=== PATIENT | female | born 1985 | race Caucasian/White ===

== ENCOUNTER 2016-09-27 09:32 | Emergency (ER) | payer OTHER ==
--- NOTE | ~2016-09-27 | ER ---
PATIENT'S NAME: [facility] AGE: 30 Y [address] ROOM: [place] [address] LOCATION: ED ADMIT DATE: 09/27/2016 ER/Outpatient Report DISCHARGE DATE: 09/27/2016 FAMILY PHYSICIAN: PHYSICIAN, NO ATTENDING PHYSICIAN: Carlos Adams Time of Arrival: 0937. Time of evaluation: 936. CHIEF COMPLAINT: Facial swelling. HISTORY OF PRESENT ILLNESS: The patient is a 30-year-old female, who presents to the emergency department today with a chief complaint of facial swelling on the left side. She reports she has bad teeth. This reported couple of days prior. She was seen and evaluated in May by myself for similar symptoms. She reports she was never able to follow up with a dentist at that time. She denies any fevers or chills. No nausea or vomiting. No diarrhea or constipation. PAST MEDICAL HISTORY: Dental caries, Araiza's palsy. PAST SURGICAL HISTORY: x2. SOCIAL HISTORY: The patient denies any tobacco, alcohol, or illicit drug use. ALLERGIES: PENICILLIN, WHICH CAUSES MOUTH SWELLING. MEDICATIONS: None reported. PRIMARY CARE DOCTOR: José Miguel Collins MD at [facility]. REVIEW OF SYSTEMS: All systems are reviewed by myself and negative with the exception of those discussed in HPI and past medical history. PHYSICAL EXAMINATION: VITAL SIGNS: Weight 86.6 kg, blood pressure 141/77, pulse 79, respiratory rate 20, temperature 98.8, oxygen saturation 96% on room air. PATIENT'S NAME: [facility] AGE: 30 Y [address] ROOM: [place] [address] LOCATION: [facility] ADMIT DATE: 09/27/2016 ER/Outpatient Report DISCHARGE DATE: 09/27/2016 FAMILY PHYSICIAN: PHYSICIAN, NO ATTENDING PHYSICIAN: Carlos Adams GENERAL: The patient is a 30-year-old female, who appears stated age, in no acute distress at this time. HEENT: Head is normocephalic, atraumatic. Pupils are equal, round, and reactive to light. The patient does have some swelling on the right side of her jaw. Oropharynx is clear. There is no Flako's angina. The left lower jaw with no obvious periapical abscess. The patient does have multiple dentition with multiple cavities in various stages of decay. NECK: Supple. There is no nuchal rigidity. CARDIOVASCULAR: Regular rate and rhythm. No murmurs, rubs, or gallops. LUNGS: Clear to auscultation bilaterally. No wheezes, rales, or rhonchi. ABDOMEN: Soft, nontender, and nondistended. No rebound, rigidity, or guarding. MUSCULOSKELETAL: The patient moves all 4 extremities. SKIN: Warm and dry. There are no eyes rashes or lesions noted. LAB AND X-RAYS: None. IMPRESSION: 1. Periapical abscess. 2. Initial visit. EMERGENCY DEPARTMENT COURSE: The patient was brought back to the examination room. Seen and evaluated by myself. History and physical performed as described above. We will treat the patient for alcohol abstinence. We will start on clindamycin. I do not see an obvious place to incise at this point. The patient does report she has a followup appointment with a dentist scheduled for Tuesday. I have discussed return care instructions including worsening symptoms or any other concerns, return to emergency department as soon as possible. The patient is given a prescription for Naprosyn for pain. DISPOSITION: The patient is discharged home in good condition. DO DIXON CALLAWAY/sada /[id number] d: 09/27/16 1731 t: 09/28/16 0646, OUTPATIENT REPORT
== END 2016-09-27 09:45 | disposition disaster alternative care site (69) ==
LOC: GMED 09:32
DX: K04.7 Periapical abscess without sinus (principal); G51.0 Bell's palsy; Z88.0 Allergy status to penicillin